=== PATIENT | female | born 1945 | race African-American/Black ===

== ENCOUNTER 2017-03-09 08:51 | Emergency (ER) | payer OTHER ==
[2017-03-09 09:17] VITALS: TEMP 98.3; BMI 21.9
--- NOTE | 2017-03-09 10:16 | PDOC ---
History of Present Illness - General History Source: Patient Exam Limitations: No Limitations - History of Present Illness Initial Comments: 03/09/17 10:22 The patient is a 71 year old female with past medical history of NIDDM who presents to the ED with complaints of a right axilla abscess which has been present for the past three weeks. The patient states that she's had multiple in the past that have gone away, but this one has persisted. She believes her abscesses are from shaving, but reports that she hasn't shaved her right axilla in the past few months. She reports treating the abscess with some cream, but has gotten no relief. She reports some drainage and mild pain to the area, but denies any fevers or chills. <Nanda Bravo - Last Filed: 03/09/17 10:40> <Eliel Saeed - Last Filed: 03/09/17 10:51> - General Chief Complaint: Abscess Boil Stated Complaint: ABSCESS/ RT AXILLA Time Seen by Provider: 03/09/17 10:15 Past History <Nanda Bravo - Last Filed: 03/09/17 10:40> - Past Medical History COPD: No Dementia: Yes HTN: Yes Hypercholesterolemia: Yes - Suicide/Smoking/Psychosocial Hx Smoking History: Never smoked Hx Alcohol Use: No Drug/Substance Use Hx: No <Eliel Saeed - Last Filed: 03/09/17 10:51> - Past Medical History Allergies/Adverse Reactions: Allergies Allergy/AdvReac Type Severity Reaction Status Date / Time Sulfa (Sulfonamide Allergy Verified 03/09/17 09:17 Antibiotics) Home Medications: Ambulatory Orders Clindamycin [Cleocin -] 600 mg PO Q6H #56 capsule 03/09/17 Ondansetron [Zofran *Odt*] 8 mg SL TID #30 od.tablet 03/09/17 Oxycodone HCl/Acetaminophen [Percocet 5-325 mg Tablet] 1 - 2 tab PO Q4H #20 tablet MDD 6 03/09/17 Review of Systems - Review of Systems Able to Perform ROS?: Yes Comments:: 03/09/17 10:25 GENERAL/CONSTITUTIONAL: No fever or chills. No weakness. HEAD, EYES, EARS, NOSE AND THROAT: No change in vision. No ear pain or discharge. No sore throat. CARDIOVASCULAR: No chest pain or shortness of breath. RESPIRATORY: No cough, wheezing, or hemoptysis. GASTROINTESTINAL: No nausea, vomiting, diarrhea or constipation. GENITOURINARY: No dysuria, frequency, or change in urination. MUSCULOSKELETAL: No joint or muscle swelling or pain. No neck or back pain. SKIN: Present: right axilla abscess No rash NEUROLOGIC: No headache, vertigo, loss of consciousness, or change in strength/ sensation. ENDOCRINE: No increased thirst. No abnormal weight change. HEMATOLOGIC/LYMPHATIC: No anemia, easy bleeding, or history of blood clots. ALLERGIC/IMMUNOLOGIC: No hives or skin allergy. All Other Systems: Reviewed and Negative <Nanda Bravo - Last Filed: 03/09/17 10:40> *Physical Exam - Vital Signs Last Vital Signs Temp Pulse Resp BP Pulse Ox 98.3 F 80 17 150/77 99 03/09/17 09:13 03/09/17 09:13 03/09/17 09:13 03/09/17 09:13 03/09/17 09:13 - Physical Exam Comments: 03/09/17 10:25 GENERAL: Awake, alert, and fully oriented, in no acute distress HEAD: No signs of trauma EYES: PERRLA, EOMI, sclera anicteric, conjunctiva clear ENT: Auricles normal inspection, hearing grossly normal, nares patent, oropharynx clear without exudates. Moist mucosa NECK: Normal ROM, supple, no lymphadenopathy, JVD, or masses LUNGS: Breath sounds equal, clear to auscultation bilaterally. No wheezes, and no crackles HEART: Regular rate and rhythm, normal S1 and S2, no murmurs, rubs or gallops ABDOMEN: Soft, nontender, normoactive bowel sounds. No guarding, no rebound. No masses EXTREMITIES: Normal range of motion, no edema. No clubbing or cyanosis. No cords, erythema, or tenderness NEUROLOGICAL: Cranial nerves II through XII grossly intact. Normal speech, normal gait SKIN: R Axilla: hidradenitis suppurativa with one larger 2 cm abscess presently draining Warm, Dry, normal turgor, no rashes or lesions noted <Nanda Bravo - Last Filed: 03/09/17 10:40> - Vital Signs Last Vital Signs Temp Pulse Resp BP Pulse Ox 98.3 F 80 17 150/77 99 03/09/17 09:13 03/09/17 09:13 03/09/17 09:13 03/09/17 09:13 03/09/17 09:13 <Eliel Saeed - Last Filed: 03/09/17 10:51> Procedures - Incision and Drainage I&D Site: Right: Axilla (Anesthetized with 5 cc of lidocane in a ring block. Inscision made with 11 blade. 1-2 cc of pus drained. Abscess was left open to drain. Too small to accept a drain ) <Nanda Bravo - Last Filed: 03/09/17 10:40> *DC/Admit/Observation/Transfer - Attestations Scribe Attestion: 03/09/17 10:26 Documentation prepared by Nanda Bravo, acting as caregivers non medical for Eliel Saeed DO. <Nanda Bravo - Last Filed: 03/09/17 10:40> - Discharge Dispostion Admit: No - Attestations Physician Attestion: 03/09/17 10:15 I, Dr. Eliel Saeed, attest that this document has been prepared under my direction and personally reviewed by me in its entirety. I further attest, that it accurately reflects all work, treatment, procedures and medical decision -making performed by me. <Eliel Saeed - Last Filed: 03/09/17 10:51> Diagnosis at time of Disposition: Hidradenitis suppurativa of right axilla, Abscess, Encounter for incision and drainage procedure - Discharge Dispostion Disposition: HOME Condition at time of disposition: Improved - Prescriptions Prescriptions: Clindamycin [Cleocin -] 600 mg PO Q6H #56 capsule Ondansetron [Zofran *Odt*] 8 mg SL TID #30 od.tablet Oxycodone HCl/Acetaminophen [Percocet 5-325 mg Tablet] 1 - 2 tab PO Q4H #20 tablet MDD 6 - Referrals Referrals: Napoleon Rhoades MD [Primary Care Provider] - Dung Anderson MD [Staff Physician] - - Patient Instructions Printed Discharge Instructions: Hidradenitis Suppurativa, DI for Incision and Drainage of a Skin Abscess Additional Instructions: Mrs Jaja Mauro, Although I lanced this, it will only come back. Please follow up with Dr. Anderson. Return to us if worse or any problems. Take the cleocin (antibiotic until the bottle is gone - 14 days). Percocet is for bad pain, if you take it you will probably need to use the ZofranODT for upset stomach. [place]- Dr. Eliel Saeed - Post Discharge Activity
[2017-03-09] MEDS ORDERED: LIDOCAINE HCL/PF 2% SDV 5ML VIAL SQ ONE (10:21)
[2017-03-09] MEDS ORDERED: CLINDAMYCIN HCL 300 MG CAPSULE PO ONE (10:22)
[2017-03-09] MEDS ORDERED: ONDANSETRON *ODT* 4 MG TABLET SL ONE (10:22)
[2017-03-09] MEDS ORDERED: LIDOCAINE HCL 2% (20ML MULTI-DOSE VIAL) NR ONE (10:28)
[2017-03-09] MEDS ORDERED: CLINDAMYCIN HCL 150 MG CAPSULE (FP) ONE (11:55)
[2017-03-09] MEDS ORDERED: ONDANSETRON 8 MG TABLET (FP) PO ONE (11:56)
[2017-03-09 12:29] VITALS: BP 149/72; PULSE 68
== END 2017-03-09 12:15 | disposition home or self-care (01) ==
LOC: JERFT 08:51 → JER 08:51
PROC: 0X940ZZ Drainage of Right Axilla, Open Approach (ICD-10-PCS; principal; 2017-03-09)
DX: L02.411 Cutaneous abscess of right axilla (principal); L73.2 Hidradenitis suppurativa; I10 Essential (primary) hypertension; E11.9 Type 2 diabetes mellitus without complications; Z79.84 Long term (current) use of oral hypoglycemic drugs; E78.00 Pure hypercholesterolemia, unspecified; F03.90 Unspecified dementia, unspecified severity, without behavioral disturbance, psychotic disturbance, mood disturbance, and anxiety
CPT/HCPCS: 87070; 87186; 87205; 99282-25

== ENCOUNTER 2017-05-17 10:59 | Emergency (ER) | payer OTHER ==
[2017-05-17 11:08] VITALS: BP 145/87; PULSE 83; TEMP 98.5; BMI 18.3
[2017-05-17] MEDS ORDERED: IBUPROFEN 400 MG TABLET (FP) PO ONE ×2 (12:12→12:18)
--- NOTE | 2017-05-17 12:13 | PDOC ---
History of Present Illness - General Chief Complaint: Pain Stated Complaint: LT SHOULDER PAIN Time Seen by Provider: 05/17/17 11:45 History Source: Patient Exam Limitations: No Limitations Past History - Past Medical History Allergies/Adverse Reactions: Allergies Allergy/AdvReac Type Severity Reaction Status Date / Time Sulfa (Sulfonamide Allergy Verified 05/17/17 11:04 Antibiotics) Home Medications: Ambulatory Orders predniSONE [Deltasone -] 40 mg PO DAILY #8 tablet 05/17/17 COPD: No DVT: No Dementia: Yes HTN: Yes Hypercholesterolemia: Yes - Immunization History Immunization Up to Date: Yes - Suicide/Smoking/Psychosocial Hx Smoking History: Never smoked Have you smoked in the past 12 months: No Information on smoking cessation initiated: No Hx Alcohol Use: No Drug/Substance Use Hx: No Substance Use Type: None *Physical Exam - Vital Signs Last Vital Signs Temp Pulse Resp BP Pulse Ox 98.5 F 83 16 145/87 99 05/17/17 11:04 05/17/17 11:04 05/17/17 11:04 05/17/17 11:04 05/17/17 11:04 *DC/Admit/Observation/Transfer Diagnosis at time of Disposition: Shoulder pain, left Qualifiers: Chronicity: acute Qualified Code(s): M25.512 - Pain in left shoulder - Discharge Dispostion Disposition: HOME Condition at time of disposition: Stable Admit: No - Referrals Referrals: Napoleon Rhoades MD [Primary Care Provider] - Anuj Cisneros MD [Staff Physician] - - Patient Instructions Printed Discharge Instructions: DI for Shoulder Pain Additional Instructions: 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 This is probably what's causing your pain. Please take the steroids daily for 4 days to help with the pain. Please do gentle stretching exercises. You may use heating packs to the area to help with pain as well. Follow-up with orthopedics. A referral is been provided for you. Return to the emergency department if you have worsening pain, numbness and tingling in her hands, or have any changes in your symptoms. - Post Discharge Activity
== END 2017-05-17 13:30 | disposition home or self-care (01) ==
LOC: JERFT 10:59
DX: M25.512 Pain in left shoulder (principal); E78.00 Pure hypercholesterolemia, unspecified; I10 Essential (primary) hypertension; F03.90 Unspecified dementia, unspecified severity, without behavioral disturbance, psychotic disturbance, mood disturbance, and anxiety
CPT/HCPCS: 73030-TC-LT-FY; 99281-25